=== PATIENT | female | born 1955 | race Caucasian/White ===

== ENCOUNTER 2023-10-05 14:10 | Emergency (ER) | payer MEDICARE, OTHER ==
[2023-10-05] MEDS ORDERED: Ketorolac Tromethamine 30 MG (1 mL) VIAL ONE (14:34)
== END 2023-10-05 16:06 | disposition home or self-care (01) ==
LOC: CSHERS 14:10
DX: S02.5XXA Fracture of tooth (traumatic), initial encounter for closed fracture (principal); S01.81XA Laceration without foreign body of other part of head, initial encounter; S01.512A Laceration without foreign body of oral cavity, initial encounter; W17.89XA Other fall from one level to another, initial encounter
CPT/HCPCS: 12011; 70450; 71045; 72125; 93005; 96374; J1885